=== PATIENT | female | born 1945 | race Caucasian/White ===

== ENCOUNTER → 2018-03-30 | Outpatient (CLI) | payer MEDICARE, BC ==
[~2018-03-30] MED LIST: ASCO-182 PO; ASPI81TA86 PO; CALC1TAB58 PO; CHOL200038 PO; CLOB15CR22 TP; FAMO-122 PO; FLU IM; FLU150 PO; LEV112 PO; LEVO-3 PO; LEVO-317 PO; OMEG100027 PO; OMEP-218 PO; PNEU0.5D3 IM; TRIA-18 PO
== END ==
LOC: LAB 10:04
PROVIDERS: ATTEND Internal Medicine
DX: E03.9 Hypothyroidism, unspecified (principal)
CPT/HCPCS: 36415; 84443

== ENCOUNTER → 2018-06-07 | Outpatient (CLI) | payer MEDICARE, BC ==
[~2018-06-07] MED LIST changes: +LISI5TAB25 PO
== END ==
LOC: LAB 11:26
PROVIDERS: ATTEND Internal Medicine
DX: E03.9 Hypothyroidism, unspecified (principal)
CPT/HCPCS: 36415; 84443

== ENCOUNTER → 2018-08-18 | Outpatient (CLI) | payer MEDICARE, BC ==
[~2018-08-18] MED LIST changes: +FLU180SY11 IM
--- NOTE | 2018-08-18 08:41 | RADIOLOGY IMAGING REPORT ---
FACILITY: [facility] PATIENT NAME: Deloris Wiley : 1945 MR: [id number] V: [id number] EXAM DATE: ORDERING PHYSICIAN: SWETHA REESE TECHNOLOGIST: Location: [facility] Patient: Deloris Wiley : 1945 Visit/Account:[id number] Date of Sevice: 08/18/2018 DEXA Scan Clinical history: Menopause. Comparison: DEXA scan from 08/08/2013. LUMBAR SPINE: The bone mineral density (BMD) measured from L1-L4 correlates with a Z-score of 0.8 and a T-score of 1 which is Normal as defined by the World Health Organization. The corresponding risk of fracture in the lumbar spine is Not increased compared with a young adult reference population. This value has increased by 6.6 % since the prior study. More than 5% change is considered significant. HIP: Bone mineral density (BMD) measured in the LEFT total hip region correlates with a Z-score 1.5 and a T-score of -0.2 which is normal as defined by the World Health Organization. The corresponding risk of fracture in the hip is Not i ncreased compared to a young adult reference population. This value has increased by 2.4 % since the prior study. More than 5% change is considered significant. T score left femoral neck -1.5 Bone mineral density (BMD) measured in the Femoral Neck region measures 0.823 g/cm?. IMPRESSION: 1. Lumbar spine: Normal. There has been 6.6% increase in the bone mineral density since the previou s exam. 2. Left Total Hip: Normal. There has been 2.4% increase in the bone mineral density since the previ ous exam. 3. Femoral Neck: Bone Mineral Density is 0.823 g/cm? The next DEXA scan of this patient should include the following sites: L1-L4 and the left hip. FRAX? WHO Fracture Risk Assessment Tool link: <http://www.shef.ac.uk/FRAX/tool.jsp?locationValue=9> PLEASE NOTE: 1) The World Health Organization defines low BMD as follows: T-score Normal > -1 Osteopenia < -1 and > -2.5 Osteoporosis < -2.5 without fractures Established osteoporosis < -2.5 with fractures 2) In general, you may wish to consider: Diagnosis Treatment Follow-up DEXA Normal BMD Prevention 2-3 years Osteopenia Prevention/therapy 1-2 years Osteoporosis Therapy Yearly 3) Fracture risk estimated from the T-score is more accurate for vertebral fractures (often spontane ous) than for hip fractures. Report Dictated By: Viviane Cm MD at 08/18/2018 8:36 AM Report E-Signed By: Viviane Cm MD at 08/18/2018 8:38 AM WSN:[id number]
--- NOTE | 2018-08-18 10:45 | RADIOLOGY IMAGING REPORT ---
FACILITY: [facility] PATIENT NAME: JOSÉ MIGUEL PERALTA : [id number] MR: [id number] V: [id number] EXAM DATE: ORDERING PHYSICIAN: SWETHA REESE TECHNOLOGIST: Elsa Perea PROCEDURE:BILATERAL DIGITAL SCREENING MAMMOGRAM WITH CAD ASSISTED INTERPRETATION & 3D TOMOSYNTHESIS COMPARISON:Prior mammograms 05/20/17, 12/18/15, 09/18/14, 08/08/13, 08/02/12. INDICATIONS:SCREENING FINDINGS: Moderate amount of fibroglandular tissue is seen throughout the breasts. Most of the parenchymal pattern has remained stable allowing for difference in mammographic technique & patient positioning. In the lateral portion of the Left breast in the middle 1/3 there is a focal area of increased density with suggestion of architectural distortion for which Spot compression view is recommended. DIAGNOSTIC CATEGORY 0--INCOMPLETE: NEED ADDITIONAL IMAGING EVALUATION. RECOMMENDATIONS: ADDITIONAL MAMMOGRAPHIC VIEWS REQUIRED: LEFT BREAST. IMPRESSION: BIRADS 0: Incomplete. Additional views of the Left breast recommended as described. Dictated by: Viviane Cm M.D. on 08/18/2018 at 10:13 Transcribed by: [email or web address] on 08/18/2018 at 10:21 Approved by: Viviane Cm M.D. on 08/18/2018 at 10:44 [facility]
== END ==
LOC: MAMO 02:34
PROVIDERS: ATTEND Internal Medicine
DX: Z13.820 Encounter for screening for osteoporosis (principal); Z12.31 Encounter for screening mammogram for malignant neoplasm of breast; R92.8 Other abnormal and inconclusive findings on diagnostic imaging of breast; Z78.0 Asymptomatic menopausal state
CPT/HCPCS: 77063; 77067; 77080

== ENCOUNTER → 2018-09-12 | Outpatient (CLI) | payer MEDICARE, BC ==
--- NOTE | 2018-09-20 10:34 | RADIOLOGY IMAGING REPORT ---
FACILITY: PATIENT NAME: JOSÉ MIGUEL PERALTA : [id number] MR: [id number] V: [id number] EXAM DATE: ORDERING PHYSICIAN: ARRON REESE TECHNOLOGIST: Arron Estrada RDMS, ISAÍAS PROCEDURE:US LEFT BREAST COMPARISON:Mammogram 09/12/18 INDICATIONS:FURTHER EVAL/FOCAL ASYMMETRY OUTER HALF LEFT BREAST. FINDINGS: Ultrasound images of the Left breast from the 12 o'clock to the 6 o'clock position demonstrate no suspicious mass. A benign duct is identified at the 6 o'clock position. DIAGNOSTIC CATEGORY 2--BENIGN FINDING. RECOMMENDATIONS: ROUTINE YEARLY MAMMOGRAM AND CLINICAL EVALUATION. IMPRESSION: BIRADS 2: Benign finding. No evidence for malignancy. This was discussed with the patient by Dr Lynn Dictated by: Dexter Lynn M.D. on 09/12/2018 at 15:44 Transcribed by: JULIA on 09/13/2018 at 15:23 Approved by: Dexter Lynn M.D. on 09/20/2018 at 10:34 [facility]
--- NOTE | 2018-09-20 10:34 | RADIOLOGY IMAGING REPORT ---
FACILITY: [facility] [place] PATIENT NAME: JOSÉ MIGUEL PERALTA : [id number] MR: [id number] V: [id number] EXAM DATE: [id number] ORDERING PHYSICIAN: SWETHA REESE TECHNOLOGIST: Elsa Perea PROCEDURE:LEFT DIGITAL DIAGNOSTIC MAMMOGRAM WITH CAD ASSISTED INTERPRETATION & 3D TOMOSYNTHESIS COMPARISON:Mammograms 08/18/18 & 12/18/15 INDICATIONS:FURTHER EVAL/FOCAL ASSYMETRY LEFT BREAST IMAGES: Left breast mediolateral & Left breast spot compression CC views were obtained. The images were also reviewed with 3D tomography. FINDINGS: The previously seen focal asymmetry in the outer half of the Left breast does not persist on compression view. Mediolateral image is negative. DIAGNOSTIC CATEGORY 0--INCOMPLETE: NEED ADDITIONAL IMAGING EVALUATION. RECOMMENDATIONS: ULTRASOUND: LEFT BREAST. IMPRESSION: BIRADS 0: Incomplete, need additional imaging evaluation. Previously seen focal asymmetry outer half Left breast does not persist on compression views. Recommend Ultrasound Left breast for further evaluation. Ultrasound was performed on the same day. Dictated by: Dexter Lynn M.D. on 09/12/2018 at 15:38 Transcribed by: JULIA on 09/13/2018 at 15:21 Approved by: Dexter Lynn M.D. on 09/20/2018 at 10:33 [facility]
== END ==
LOC: MAMO 04:08
PROVIDERS: ATTEND Internal Medicine
DX: N60.42 Mammary duct ectasia of left breast (principal)
CPT/HCPCS: 77061; 77065